=== PATIENT | male | born 2000 | race American Indian/Alaskan Native ===

== ENCOUNTER 2021-10-21 09:23 | Inpatient (IN) | payer BC ==
--- NOTE | 2021-10-21 10:26 | XRay Report ---
CHEST 1 VIEW INDICATION: shortness of breath. COMPARISON: None FINDINGS: Support devices: None. Heart: Within normal limits. Lungs/Pleura: A moderate left pneumothorax is identified measuring 4.6 cm from the left lung apex. Th ere is suggestion of mild mediastinal shift to the right which probably represents a tension componen t. The pneumothorax is estimated at 30%. The lungs are clear otherwise. Additional findings: Mildly displaced left posterolateral left rib fracture is identified IMPRESSION: Moderate left pneumothorax. Left eighth rib fracture. CRITICAL RESULT: Time of Discovery (RADIATION THERAPY TECHNICIAN/CDT): 0919 hours Time of Communication (RADIATION THERAPY TECHNICIAN/CDT): 0921 hours Licensed Practitioner Receiving Report: Dr. Vasquez Read-Back Performed: Yes. Signer Name: Mt Diaz Jr, MD Signed: 10/21/2021 10:21 AM Workstation Name: [id number]
[2021-10-21] MEDS ORDERED: ETOMIDATE 20 MG/10 ML INJ IV ONE (10:33)
[2021-10-21] MEDS ORDERED: LIDOCAINE (1%) 10 MG/1 ML VIAL 20 ML MDV INFILTRATI ONE (10:35)
[2021-10-21] MEDS ORDERED: HYDROmorphone 1 MG/1 ML INJ ONE (11:00)
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
[2021-10-21] MEDS ORDERED: ONDANSETRON 4 MG/2 ML INJ IV ONE (11:42)
[2021-10-21] MEDS ORDERED: HYDROmorphone 1 MG/1 ML INJ IV ONE ×4 (11:42→21:04)
--- NOTE | 2021-10-21 11:44 | XRay Report ---
XR chest 1V ap INDICATION / CLINICAL INFORMATION: Status post chest tube placement. COMPARISON: Radiograph from earlier same day. FINDINGS: SUPPORT DEVICES: Interval placement of left chest tube. Distal tip of the tube projects along the med ial left upper hemithorax. HEART /PULMONARY VASCULATURE: No significant abnormality. LUNGS / PLEURA: Lungs are clear. Left pneumothorax is nearly resolved. Tiny left apical pneumothorax remains. Additional: Left rib fracture is unchanged. IMPRESSION: Near resolution of left pneumothorax status post chest tube placement. Tiny left apical pneumothorax persists. Signer Name: Chacho Cha MD Signed: 10/21/2021 11:40 AM Workstation Name: [id number]
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
[2021-10-21 12:45] LABS: Basophils % (Auto) 0.1 % (0.0-1.8); Eosinophils % (Auto) 0.2 % (0.0-4.3); Hematocrit 45.4 % (35.5-45.6); Hemoglobin 14.9 gm/dl (11.8-15.2); Lymphocytes # (Auto) 0.4 K/mm3 (1.2-5.4); Lymphocytes % (Auto) 3.7 % (13.4-35.0); Mean Corpuscular HGB Conc 33 % (32-34); Mean Corpuscular Volume 81 fl (84-94); Monocytes # (Auto) 0.9 K/mm3 (0.0-0.8); Monocytes % (Auto) 7.6 % (0.0-7.3); Platelet Count 284 K/mm3 (140-440); Red Blood Count 5.62 M/mm3 (3.65-5.03); Red Cell Distribution Width 13.7 % (13.2-15.2)
[2021-10-21 12:51] LABS: Blood Urea Nitrogen 13 mg/dL (9-20); Calcium 9.6 mg/dL (8.4-10.2); Hemolysis Index 7; INR 0.94 (0.87-1.13)
[2021-10-21 12:52] LABS: Partial Thromboplastin Time 25.6 Sec. (24.2-36.6)
[2021-10-21 13:47] LABS: BUN/Creatinine Ratio 22
[2021-10-21] MEDS ORDERED: MORPHINE 4 MG/1 ML INJ IV PRN (14:53)
[2021-10-21] MEDS ORDERED: ALBUTEROL 2.5 MG/3 ML NEBU IH PRN (15:00)
[2021-10-21] MEDS ORDERED: ONDANSETRON 4 MG/2 ML INJ IV PRN (15:00)
[2021-10-21] MEDS ORDERED: ACETAMINOPHEN 325 MG TAB PO PRN (15:00)
[2021-10-21] MEDS: oxyCODONE /ACETAMINOPHEN 5-325MG TAB PO PRN ×2 (16:12→23:30)
[2021-10-21] MEDS: MORPHINE 2 MG/1 ML INJ IV PRN (17:06)
[2021-10-21] MEDS: FAMOTIDINE 10 MG TAB PO SCH (23:14)
[2021-10-22] MEDS: MORPHINE 2 MG/1 ML INJ IV PRN ×2 (01:04→09:47)
[2021-10-22] MEDS ORDERED: MORPHINE 2 MG/1 ML INJ IV ONE (03:08)
[2021-10-22 05:47] LABS: Hematocrit 44.9 % (35.5-45.6); Hemoglobin 14.4 gm/dl (11.8-15.2); Mean Corpuscular HGB Conc 32 % (32-34); Mean Corpuscular Volume 81 fl (84-94); Platelet Count 256 K/mm3 (140-440); Red Blood Count 5.51 M/mm3 (3.65-5.03); Red Cell Distribution Width 13.6 % (13.2-15.2)
[2021-10-22] MEDS: oxyCODONE /ACETAMINOPHEN 5-325MG TAB PO PRN ×2 (06:04→13:06)
[2021-10-22 06:07] LABS: Blood Urea Nitrogen 8 mg/dL (9-20); Calcium 9.3 mg/dL (8.4-10.2); Hemolysis Index 7
[2021-10-22 06:11] LABS: BUN/Creatinine Ratio 11
[2021-10-22 06:46] LABS: Total Cells Counted 100
[2021-10-22 06:47] LABS: Platelet Estimate Consistent w Auto; RBC Morphology Normal
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
--- NOTE | 2021-10-22 10:46 | XRay Report ---
CHEST 1 VIEW INDICATION: left side pneumothorax. COMPARISON: None FINDINGS: Support devices: Left Heimlich chest tube remains in the same position terminating just superior to t he aortic arch. Heart: Within normal limits. Lungs/Pleura: No residual left pneumothorax is appreciated. The lungs are clear. Additional findings: Left lateral eighth and ninth rib fractures are noted on today's exam. IMPRESSION: No recurrent pneumothorax. Left eighth and ninth rib fractures. Signer Name: Mt Diaz Jr, MD Signed: 10/22/2021 10:41 AM Workstation Name: [id number]
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
[2021-10-22] MEDS: FAMOTIDINE 10 MG TAB PO SCH (11:08)
[2021-10-22 12:30] VITALS: BP 125/69
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
--- NOTE | 2021-10-22 14:07 | XRay Report ---
CHEST - 1 VIEW 1201 hours INDICATION: left side pneumothorax COMPARISON: Earlier today at 1021 hours FINDINGS: Support devices: Left chest tube remains in similar position. Heart: Stable cardiomediastinal silhouette. Lungs/pleura: The lungs remain clear with no evidence for infiltrate, effusion or pneumothorax. Additional findings: Stable left rib fractures. IMPRESSION: Unchanged exam. Signer Name: Mt Diaz Jr, MD Signed: 10/22/2021 2:03 PM Workstation Name: [id number]
== END 2021-10-22 16:35 | disposition home or self-care (01) | DRG 200 ==
LOC: ED 09:23 → INTOOBSV 14:53 → 3A 14:53 → OBSVTOIN 10-22 14:15
PROVIDERS: ADMIT Internal Medicine; ATTEND Internal Medicine
PROC: 0W9B30Z Drainage of Left Pleural Cavity with Drainage Device, Percutaneous Approach (ICD-10-PCS; principal; 2021-10-21)
DX: S27.0XXA Traumatic pneumothorax, initial encounter (principal); S22.32XA Fracture of one rib, left side, initial encounter for closed fracture; E46 Unspecified protein-calorie malnutrition; Z68.1 Body mass index [BMI] 19.9 or less, adult; Y93.89 Activity, other specified; Y92.89 Other specified places as the place of occurrence of the external cause; Y99.8 Other external cause status
CPT/HCPCS: 36415; 71045; 80048; 85007; 85025; 85610; 85730; 94760; G0378; J3490; J1170; J2270